=== PATIENT | female | born 1945 ===

== ENCOUNTER 2018-02-16 12:31 | Emergency (ER) | payer OTHER ==
[~2018-02-16] VITALS: Ht 154.9 cm; Wt 78.9 kg
[2018-02-16] MEDS ORDERED: COZAAR25 MG (12:53)
[2018-02-16] MEDS ORDERED: ATENOLOL50 MG (12:54)
== END 2018-02-16 17:11 | disposition home or self-care (01) ==
LOC: ER 12:31
DX: I10 Essential (primary) hypertension (principal); R20.0 Anesthesia of skin